=== PATIENT | female | born 1950 | race Caucasian/White ===

== ENCOUNTER 2019-02-28 13:34 | Inpatient (IN) | payer BC ==
[~2019-02-28] VITALS: Ht 167.6 cm; Wt 33.6 kg
--- NOTE | 2019-02-28 13:58 | NUR ---
BIB FAMILY TO ED BED 10. SENT BY PMD FOR DEPRESSION AND AND WEIGHT LOSS. AWAITING ERMD EVAL.
--- NOTE | 2019-02-28 14:00 | NUR ---
PROCESS DEVELOPMENT MANAGER AT BEDSIDE FOR BLOOD DRAW.
[2019-02-28 14:03] LABS: APPEARANCE,URINE Cloudy (CLEAR); BILIRUBIN,URINE SMALL (NEGATIVE); BLOOD, URINE Negative Ery/uL (NEGATIVE); COLOR,URINE Yellow (YELLOW); KETONES,URINE Trace (NEGATIVE); LEUKOCYTE ESTERASE ,URINE Negative (NEGATIVE); NITRITE, URINE Positive (NEGATIVE); PROTEIN,URINE 30 mg/dl (NEGATIVE); UGLUCOSE Negative (NEGATIVE)
[2019-02-28 14:06] LABS: BASOPHILS # (AUTO) 0.1 /CMM (0.0-0.2); EOSINOPHILS % (AUTO) 0.9 % (0.0-6.0); HEMATOCRIT 39 % (33-45); HEMOGLOBIN 12.9 g/dL (11.5-14.8); LYMPHOCYTES % (AUTO) 24.8 % (20.0-44.0); MEAN CORPUSCULAR HGB CONC 33 g/dl (31.0-36.0); MEAN CORPUSCULAR VOLUME 90 fL (82-100); MONOCYTES # (AUTO) 0.5 /CMM (0.1-1.30); MONOCYTES % (AUTO) 6.6 % (2.0-12.0); NEUTROPHILS # (AUTO) 5.3 /CMM (1.8-8.9); NEUTROPHILS % (AUTO) 66.7 % (43.0-81.0); PLATELET COUNT (AUTO) 341 /CMM (150-450); RED BLOOD CELL COUNT(AUTO) 4.38 MIL/uL (4.0-5.2)
[2019-02-28 14:09] LABS: BACTERIA,URINE Many /HPF (None Seen); RBC,URINE 0-2 /HPF (0-2)
[2019-02-28 14:10] LABS: SQUAMOUS EPITHELIAL CELL,UR Few /HPF (None Seen)
[2019-02-28 14:18] LABS: ALANINE AMINOTRANSFERASE 26 U/L (12-78); ALBUMIN 3.3 g/dL (3.4-5.0); ALCOHOL, BLOOD < 3 mg/dL (0-0); ALKALINE PHOSPHATASE 72 U/L (46-116); ASPARTATE AMINOTRANSFERASE 31 U/L (15-37); BILIRUBIN,DIRECT 0.1 mg/dL (0.0-0.2); BILIRUBIN,TOTAL 0.4 mg/dL (0.2-1.0); CALCIUM, SERUM 9.5 mg/dL (8.5-10.1); CHLORIDE 98 mmol/L (98-107); CREATININE 0.9 mg/dL (0.6-1.3); GLUCOSE 118 mg/dL (74-106); SODIUM SERUM 141 mmol/L (136-145); TOTAL PROTEIN, SERUM 6.5 g/dL (6.4-8.2); UREA NITROGEN, BLOOD 35 mg/dL (7-18)
[2019-02-28 14:20] LABS: ACETAMINOPHEN 0 ug/ml (10-30); CARBON DIOXIDE 40 mmol/L (21-32); SALICYLATE 1.5 mg/dL (2.8-20.0)
[2019-02-28 14:22] LABS: POTASSIUM 2.3 mmol/L (3.5-5.1)
--- NOTE | 2019-02-28 14:34 | NUR ---
DR YUSUF AT BEDSIDE FOR EVAL.
[2019-02-28] MEDS ORDERED: POTASSIUM CHLORIDE 20 MEQ TAB.PRT.SR PO ONE ×2 (15:16→15:30)
[2019-02-28] MEDS ORDERED: CEFTRIAXONE 1GM BAG (ER ONLY) 50 ML IV ONE (15:19)
[2019-02-28] MEDS ORDERED: POTASSIUM CHLORIDE 20 MEQ POWDER PACKET ONE (15:20)
[2019-02-28] MEDS ORDERED: IV NS 0.9% 1,000 ML BAG IV ONE (15:30)
[2019-02-28] MEDS ORDERED: CEFTRIAXONE 1 G in IV D5W 50 ML IV ONE (15:30)
[2019-02-28] MEDS ORDERED: POTASSIUM CL. PREMIX PERIPHER. 200 ML ONE (15:32)
[2019-02-28] MEDS ORDERED: HYDR25TA4 PO (15:58)
[2019-02-28] MEDS ORDERED: QUET50TA PO (15:58)
[2019-02-28] MEDS ORDERED: LAMO100T17 PO (15:58)
[2019-02-28] MEDS ORDERED: QUET300T2 PO (15:58)
[2019-02-28] MEDS ORDERED: VENL37.581 PO (15:58)
[2019-02-28] MEDS ORDERED: PANT40TA4 PO (15:58)
[2019-02-28] MEDS ORDERED: LIPA1CAP15 PO (15:58)
[2019-02-28] MEDS: POTASSIUM CL. PREMIX PERIPHER. 50 ML IV SCH ×2 (16:09→20:13)
--- NOTE | 2019-02-28 18:21 | NUR ---
REPORT GIVEN TO BRAD OJEDA. AWAITING TRANSFER TO FLOOR.
--- NOTE | 2019-02-28 18:55 | NUR ---
TELE/RN NOTES RECEIVED PATIENT FROM ER. PATIENT IS ALERT AND ORIENTED X4 VIA GURNEY.HISTORY OF PANCREATIC CANCER, DEPRESSION, GERIATRIC PSYCHE. SKIN AND INTACT. VITAL SIGN BP 127/74 RR 16 P- 73 T 97.8. POTASSIUM 2.3 3RD BAG OF POTASSIUM 10MEQ WILL ENDORSED TO MENTAL HEALTH COORDINATOR THE CONTINUE OF CARE.
--- NOTE | 2019-02-28 19:10 | NUR ---
TELE/RN ADMITTING NOTES: RECEIVED REPORT FROM HUSSAIN OJEDA FROM [facility]. PATIENT IS ALREADY ON THE UNIT, ROOM 307-2. RECEIVED PT IN BED RESTING COMFORTABLY. A/OX4, VERBALLY RESPONSIVE AND ABLE TO MAKE NEEDS KNOWN. NO SOB NOTED, NO S/S OF ACUTE DISTRESS, NO COMPLAINS OF PAIN OR DISCOMFORT AT THIS TIME. ORIENTED GIAN UNIT AND STAFF. BELONGINGS CHECKLIST DONE BY RENETTA SOSA. PATIENT SEEMS TO BE IN A CALM, FLAT MANNER YET COOPERATIVE WHEN ANSWERING QUESTIONS. SKIN ASSESSMENT DONE, INTACT AND NO S/S OF OPEN WOUNDS. PATIENT IS AMBULATORY BUT NEEDS ASSISTANCE DUE TO WEAKNESS. ON TELE MONITORING WITH READING OF SR HR OF 70S. VITAL SIGNS STABLE. IV ACCESS PRESENT ON THE LEFT FA #20G WITH POTASSIUM IV 10MEQ STILL RUNNING (2ND BAG). DAY SHIFT NURSE; RAIJ ENDORSED ME THE THIRD BAG THAT WILL BE HUNG AFTER THE SECOND BAG IS DONE. STILL AWAITING FOR ORDERS FROM DR. GUDINO. ALL NEEDS MET AND PROVIDED AT THIS TIME. SAFETY MEASURES IN PLACE, BED IN LOW, LOCKED POSITION WITH SR UP X2. CALL LIGHT WITHIN REACH AND WILL CONTINUE TO MONITOR PATIENT ACCORDINGLY.
[2019-02-28 20:00] VITALS: BP 116/76
[2019-02-28] MEDS ORDERED: MAG HYDROX/AL HYDROX/SIMETH 30 ML UDC PO PRN (20:30)
[2019-02-28] MEDS ORDERED: ONDANSETRON HCL/PF 4 MG/2 ML VIAL IVP PRN (20:30)
[2019-02-28] MEDS ORDERED: Z GUARD REMEDY 2 OZ OINT TP PRN (20:30)
[2019-02-28] MEDS ORDERED: MAGNESIUM HYDROXIDE 30 ML UDC PO PRN (20:30)
[2019-02-28] MEDS ORDERED: ACETAMINOPHEN 325 MG TABLET PO PRN (20:30)
--- NOTE | 2019-02-28 20:30 | NUR ---
TELE/RN NOTES: INFORMED LETICIA PATEL NP ABOUT PATIENT RECEIVING 40 MEQ KCL PO IN THE ER, AND PATIENT RECEIVING 2 BAGS OF POTASSIUM 10MEQ AND PT ARRIVING TO BUSTER UNIT WITH THE SECOND BAG STILL INFUSING. THIRD BAG STILL YET TO BE HUNG AFTER THE SECOND. STILL WAITING FOR LETICIA TO RESPOND FOR FURTHER ORDERS.
[2019-02-28] MEDS: IV 1/2NS 1000 ML 1,000 ML IV PRN (21:26)
[2019-03-01] VITALS: BP 136/82
[2019-03-01 04:00] VITALS: BP 133/78
--- NOTE | 2019-03-01 06:05 | NUR ---
TELE/RN CLOSING NOTES: PATIENT REMAINS A/OX4. IN BED RESTING COMFORTABLY. VERBALLY RESPONSIVE AND ABLE TO MAKE NEEDS KNOWN. NO SOB NOTED, NO S/S OF ACUTE DISTRESS, BREATHING EVEN AND UNLABORED. NO COMPLAINS OF PAIN OR DISCOMFORT AT THIS TIME. ON TELE MONITORING WITH READING OF SR WITH OCCASIONAL PVCS HR OF 70S. IV ACCESS PRESENT ON THE LEFT FA #20G WITH 1/2 NS RUNNING AT 100 MLS/HR. PATIENT WISHES TO BE DNR, WILL ENDORSE TO DAYSHIFT TO F/U WITH MD. ALL NEEDS MET AND PROVIDED AT THIS TIME. SAFETY MEASURES IN PLACE, BED IN LOW, LOCKED POSITION WITH SR UP X2. CALL LIGHT WITHIN REACH AND WILL ENDORSE TO DAYSHIFT NURSE FOR EVONNE.
[2019-03-01 07:14] LABS: BASOPHILS % (AUTO) 0.6 % (0.0-2.0); EOSINOPHILS % (AUTO) 0.7 % (0.0-6.0); HEMATOCRIT 35 % (33-45); HEMOGLOBIN 11.5 g/dL (11.5-14.8); LYMPHOCYTES # (AUTO) 1.4 /CMM (0.8-4.8); LYMPHOCYTES % (AUTO) 19.7 % (20.0-44.0); MEAN CORPUSCULAR HGB CONC 33 g/dl (31.0-36.0); MEAN CORPUSCULAR VOLUME 89 fL (82-100); MONOCYTES # (AUTO) 0.4 /CMM (0.1-1.30); MONOCYTES % (AUTO) 5.8 % (2.0-12.0); NEUTROPHILS # (AUTO) 5.3 /CMM (1.8-8.9); NEUTROPHILS % (AUTO) 73.2 % (43.0-81.0); PLATELET COUNT (AUTO) 265 /CMM (150-450); RED BLOOD CELL COUNT(AUTO) 3.87 MIL/uL (4.0-5.2); WHITE BLOOD COUNT (AUTO) 7.2 K/uL (4.3-11.0)
[2019-03-01 07:15] LABS: CALCIUM, SERUM 8.5 mg/dL (8.5-10.1); CREATININE 0.4 mg/dL (0.6-1.3); MAGNESIUM 1.7 mg/dL (1.8-2.4); PHOSPHORUS 2.6 mg/dL (2.5-4.9)
[2019-03-01 07:41] LABS: POTASSIUM 2.8 mmol/L (3.5-5.1); THYROID STIMULATING HORMONE 4.368 uIU/mL (0.358-3.74)
--- NOTE | 2019-03-01 07:47 | NUR ---
RN OPENING NOTES Received patient on room air, no sob noted, patient denies pain at this time. Patient a/o x4, remains on tele SR HR in the 70's./ L FA 20 gauge on 0.45 NS with 100 ml per hour. Most recent potassium is 2.8. Bed at the lowest setting, call light within reach, side rails up x2.
[2019-03-01 08:00] VITALS: BP 129/74
[2019-03-01] MEDS: LIPASE/PROTEASE/AMYLASE 1 EACH CAPSULE.DR PO SCH ×3 (08:11→17:15)
[2019-03-01] MEDS: PANTOPRAZOLE 40 MG TABLET.DR PO SCH (08:11)
[2019-03-01] MEDS: LamoTRIgine 100 MG TABLET PO SCH ×2 (08:12→17:15)
[2019-03-01] MEDS ORDERED: POTASSIUM CHLORIDE 20 MEQ TAB.PRT.SR PO SCH (09:00)
[2019-03-01] MEDS ORDERED: QUETIAPINE FUMARATE 25 MG TABLET PO SCH (09:00)
[2019-03-01] MEDS ORDERED: VENLAFAXINE XR 37.5 MG CAP.SR.24H PO SCH (09:00)
[2019-03-01] MEDS ORDERED: POTASSIUM CHLORIDE 20 MEQ POWDER PACKET PO SCH (09:09)
--- NOTE | 2019-03-01 09:20 | NUR ---
RN NOTES Called pharmacy to change KDUR from oral form to potassium powder pack. Pharmacy changed it to be given tomorrow. Called them to change it to today. Jennifer stated that "this is what happens when you change forms". Awaiting for changes to happen.
[2019-03-01] MEDS: POTASSIUM CHLORIDE 20 MEQ POWDER PACKET PO SCH (09:27)
[2019-03-01] MEDS: POTASSIUM CL. PREMIX PERIPHER. 50 ML IV SCH ×4 (09:27→12:06)
[2019-03-01] MEDS: Magnesium 1GM/D5W 100ML PREMIX 100 ML IV SCH ×2 (14:17→15:50)
[2019-03-01 16:00] VITALS: BP 117/70
[2019-03-01] MEDS: ENSURE CLEAR 237 ML LIQUID (MIX BERRY) PO SCH (17:15)
--- NOTE | 2019-03-01 17:58 | NUR ---
RN CLOSING NOTES Patient remains on room air, no sob noted, a/o x4, magnesium and potassium replaced. L fa 20 half NS @ 100 ml per hour. Bed at the lowest setting, call light within reach, side rails up x2. Will give report to NOC RN for EVONNE bedside.
--- NOTE | 2019-03-01 19:48 | NUR ---
MS RN OPENING NOTES PATIENT RESTING COMFORTABLY IN BED; AWAKE, A/O X4; BREATHING EVEN AND UNLABORED; NO S/S OF ACUTE RESPIRATORY DISTRESS NOTED; PATIENT DENIES PAIN AND REPORTS TO BE DOING WELL; SKIN IS INTACT; L FA #20 INTACT AND PATENT; RUNNING 1/2 NS @ 100ML/HR; FLUSHING WELL; NO S/S OF REDNESS OR INFILTRATION; BED LOCKED IN LOW POSITION; SAFETY PRECAUTIONS IN PLACE; BILATERAL UPPER SIDE RAILS UP; CALL LIGHT WITHIN EASY REACH; WILL CONTINUE TO MONITOR.
[2019-03-01 20:00] VITALS: BP 108/70
[2019-03-01] MEDS: QUETIAPINE FUMARATE 100 MG TABLET PO SCH ×2 (21:32→21:35)
[2019-03-02] MEDS: IV 1/2NS 1000 ML 1,000 ML IV PRN (01:51)
--- NOTE | 2019-03-02 06:40 | NUR ---
MS RN CLOSING NOTES PATIENT SLEEPING COMFORTABLY IN BED; PATIENT IS A/O X4; BREATHING EVEN AND UNLABORED; NO S/S OF ACUTE RESPIRATORY DISTRESS NOTED; L FA #20 INTACT AND PATENT; IV SITE RUNNING D5 1/2 NS @ 100ML/HR; NO S/S OF REDNESS OR INFILTRATION NOTED; FLUSHING WELL; SKIN INTACT; BED LOCKED IN LOW POSITION, SIDE RAILS UP X2; SAFETY PRECAUTIONS IN PLACE; CALL LIGHT WITHIN EASY REACH; WILL ENDORSE CONTINUITY OF CARE TO ONCOMING NURSE.
[2019-03-02 06:48] LABS: BASOPHILS % (AUTO) 0.6 % (0.0-2.0); EOSINOPHILS % (AUTO) 0.9 % (0.0-6.0); HEMATOCRIT 32 % (33-45); HEMOGLOBIN 10.7 g/dL (11.5-14.8); LYMPHOCYTES # (AUTO) 1.4 /CMM (0.8-4.8); LYMPHOCYTES % (AUTO) 19.6 % (20.0-44.0); MEAN CORPUSCULAR HGB CONC 33 g/dl (31.0-36.0); MEAN CORPUSCULAR VOLUME 89 fL (82-100); MONOCYTES # (AUTO) 0.4 /CMM (0.1-1.30); MONOCYTES % (AUTO) 5.2 % (2.0-12.0); NEUTROPHILS # (AUTO) 5.2 /CMM (1.8-8.9); NEUTROPHILS % (AUTO) 73.7 % (43.0-81.0); PLATELET COUNT (AUTO) 206 /CMM (150-450)
[2019-03-02 07:30] LABS: CALCIUM, SERUM 8.2 mg/dL (8.5-10.1); CREATININE 0.5 mg/dL (0.6-1.3); MAGNESIUM 2.1 mg/dL (1.8-2.4); PHOSPHORUS 2.4 mg/dL (2.5-4.9)
[2019-03-02 08:00] VITALS: BP 94/58
[2019-03-02] MEDS: ENSURE CLEAR 237 ML LIQUID (MIX BERRY) PO SCH (08:00)
[2019-03-02] MEDS: PANTOPRAZOLE 40 MG TABLET.DR PO SCH (08:23)
[2019-03-02] MEDS: LIPASE/PROTEASE/AMYLASE 1 EACH CAPSULE.DR PO SCH (08:24)
[2019-03-02] MEDS: POTASSIUM CHLORIDE 20 MEQ POWDER PACKET PO SCH (08:25)
[2019-03-02] MEDS: LamoTRIgine 100 MG TABLET PO SCH (08:26)
[2019-03-02] MEDS ORDERED: POTASSIUM CHLORIDE 20 MEQ TAB.PRT.SR PO ONE ×2 (09:00→09:30)
[2019-03-02] MEDS ORDERED: VENLAFAXINE XR 37.5 MG CAP.SR.24H PO SCH (09:00)
[2019-03-02] MEDS ORDERED: CEPHALEXIN MONOHYDRATE 500 MG CAPSULE PO SCH (09:30)
[2019-03-02] MEDS ORDERED: Lactose-Free Food PO (09:49)
[2019-03-02] MEDS ORDERED: MAGN400O6 PO ×2 (09:49→14:32)
[2019-03-02] MEDS ORDERED: POTA20PA3 PO (09:49)
[2019-03-02] MEDS ORDERED: VENL37.55 PO (09:49)
[2019-03-02] MEDS ORDERED: CEPH500C2 PO ×2 (09:49→14:32)
[2019-03-02] MEDS ORDERED: PANT40TA2 PO (09:49)
[2019-03-02] MEDS ORDERED: K PHOS NEUTRAL 250 MG TABLET PO ONE (12:30)
[2019-03-02] MEDS ORDERED: POTA20TA83 PO (14:32)
[2019-03-02] MEDS ORDERED: MAG30ORA PO (14:32)
[2019-03-02] MEDS ORDERED: LACT-58 PO (14:32)
[2019-03-02] MEDS ORDERED: ACET-868 PO (14:32)
== END 2019-03-02 14:00 | DRG 871 ==
LOC: ER 13:42 → TELE 18:24 → MED 03-01 10:07
PROVIDERS: ADMIT Registered Nurse; ATTEND Registered Nurse
DX: A41.9 Sepsis, unspecified organism (principal); R65.21 Severe sepsis with septic shock; N39.0 Urinary tract infection, site not specified; R64 Cachexia; F33.3 Major depressive disorder, recurrent, severe with psychotic symptoms; E86.0 Dehydration; E87.6 Hypokalemia; Z85.07 Personal history of malignant neoplasm of pancreas; Z90.411 Acquired partial absence of pancreas; Z92.21 Personal history of antineoplastic chemotherapy; Z86.73 Personal history of transient ischemic attack (TIA), and cerebral infarction without residual deficits; Z81.8 Family history of other mental and behavioral disorders; Z79.899 Other long term (current) drug therapy; I10 Essential (primary) hypertension; E86.1 Hypovolemia; E03.9 Hypothyroidism, unspecified
CPT/HCPCS: 36415; 80048-TC; 80061-TC; 80076-TC; 80305; 81000-TC; 83735-TC; 84100-TC; 84439-TC; 84443-TC; 85025-TC; 87081-TC; 87086-TC; 97116-TC; 97530-TC; G0378; G0480; J0696; J2405; J3475; J3480; J3490; J7030; J7060; J7070

== ENCOUNTER 2019-03-02 13:40 | Inpatient (IN) | payer BC, OTHER ==
[~2019-03-02] VITALS: Ht 167.6 cm; Wt 38.6 kg
[~2019-03-02 13:40] MED LIST: CEPH500C2 PO; HYDR25TA4 PO; LAMO100T17 PO; LIPA1CAP15 PO; Lactose-Free Food PO; MAGN400O6 PO; PANT40TA2 PO; PANT40TA4 PO; POTA20PA3 PO; QUET300T2 PO; QUET50TA PO; VENL37.55 PO; VENL37.581 PO
[2019-03-02] MEDS ORDERED: MAG30ORA PO (14:32)
[2019-03-02] MEDS ORDERED: POTA20TA83 PO (14:32)
[2019-03-02] MEDS ORDERED: ACET-868 PO (14:32)
[2019-03-02] MEDS ORDERED: MAGN400O6 PO (14:32)
[2019-03-02] MEDS ORDERED: LACT-58 PO (14:32)
[2019-03-02] MEDS ORDERED: CEPH500C2 PO (14:32)
[2019-03-02] MEDS ORDERED: ACETAMINOPHEN 325 MG TABLET PO PRN (15:00)
[2019-03-02] MEDS ORDERED: BLOOD SUGAR DIAGNOSTIC 1 EACH STRIP IN ONE (15:00)
[2019-03-02] MEDS ORDERED: LORAZEPAM 0.5 MG TABLET PO PRN (15:00)
[2019-03-02] MEDS ORDERED: MAG HYDROX/AL HYDROX/SIMETH 30 ML UDC PO PRN (15:00)
[2019-03-02] MEDS ORDERED: MAGNESIUM HYDROXIDE 30 ML UDC PO PRN (15:00)
[2019-03-02 16:00] VITALS: BP 100/67
--- NOTE | 2019-03-02 16:15 | NUR ---
DR. MONTES DE OCA MADE AWARE OF THE ADMISSION AND GAVE ORDERS.
[2019-03-02] MEDS: LamoTRIgine 100 MG TABLET PO SCH (16:17)
--- NOTE | 2019-03-02 16:59 | NUR ---
PATIENT IS A 69 YEAR OLD FEMALE BROUGHT IN TO GPS FROM THE MEDICAL FLOOR AT 1400. PATIENT IS ADMITTED ON A VOLUNTARY STATUS BY DR MONTES DE OCA. PATIENT HAS ALLEGEDLY NOT BEEN BATHING AND NOT EATING. SHE IS C/O DEPRESSION. UPON FACE TO FACE ASSESSMENT PATIENT IS NOTICEABLY UNDERWEIGHT, 85 POUNDS. SHE APPEARS DEPRESSED WITH FLAT AFFECT. PATIENT STATED THAT SHE HAS BEEN FEELING DEPRESSED FOR ABOUT 1 YEAR. PATIENT HAS BRUISE ON RIGHT HAND BUT OTHERWISE SKIN IS INTACT. VITAL SIGNS STABLE. ADMISSION PAPERWORK SIGNED. PATIENTS RIGHTS HANDBOOK AND GUIDE TO PRESCRIPTIONS GIVEN.WILL MONITOR PATIENT Q15 FOR SAFETY AND BEHAVIOR.
[2019-03-02] MEDS: ZOLPIDEM TARTRATE 5 MG TABLET PO PRN (21:01)
[2019-03-02] MEDS ORDERED: QUETIAPINE FUMARATE 100 MG TABLET PO SCH (22:00)
[2019-03-02 22:14] VITALS: BP 98/69
[2019-03-03 07:46] LABS: ALBUMIN 2.4 g/dL (3.4-5.0); BILIRUBIN,TOTAL 0.3 mg/dL (0.2-1.0); CALCIUM, SERUM 8.6 mg/dL (8.5-10.1); CREATININE 0.6 mg/dL (0.6-1.3); POTASSIUM 3.4 mmol/L (3.5-5.1); TOTAL PROTEIN, SERUM 4.9 g/dL (6.4-8.2)
[2019-03-03 07:49] LABS: CHOLESTEROL 186 mg/dL (<200); HDL CHOLESTEROL 63 mg/dL (40-60); LDL 103 mg/dL (0-99); TRIGLYCERIDES 115 mg/dL (30-150)
[2019-03-03 08:00] VITALS: BP 100/66
[2019-03-03] MEDS: VENLAFAXINE XR 75 MG CAP.SR.24H PO SCH (08:22)
[2019-03-03] MEDS: LamoTRIgine 100 MG TABLET PO SCH ×2 (08:22→22:05)
--- NOTE | 2019-03-03 11:15 | NUR ---
Family Contact: SW spoke to the pts ex , Ta ([phone]), and informed him that the pt is in the hospital and discussed the pts treatment plan. Pts ex stated that she can live alone at home but stated that the pt will benefit from a higher level of care.
[2019-03-03] MEDS ORDERED: POTASSIUM CHLORIDE 20 MEQ TAB.PRT.SR PO SCH (11:30)
--- NOTE | 2019-03-03 11:39 | NUR ---
Initial Discharge Plan: Pt currently resides at her home alone located at [address] [place] [address]; ([phone]). Per pt, she would like to return to her home. MELANIE will work with the pt and the MD regarding appropriate discharge planning. SW will form a safe and proper discharge plan.
--- NOTE | 2019-03-03 11:51 | NUR ---
UR Note: MELANIE faxed a clinical to [facility] with attn to Ever to the fax number: [phone] and to Abhi Bronson to the fax number: [phone].
[2019-03-03 16:00] VITALS: BP 120/76
[2019-03-03] MEDS: PROSOURCE / PROSTAT (PYXIS) 30 ML UDC PO SCH (17:00)
[2019-03-03] MEDS ORDERED: ENSURE CLEAR 237 ML LIQUID (MIX BERRY) PO SCH (17:00)
[2019-03-03 20:30] VITALS: BP 122/84
[2019-03-03] MEDS: QUETIAPINE FUMARATE 100 MG TABLET PO SCH (22:05)
[2019-03-03] MEDS: ZOLPIDEM TARTRATE 5 MG TABLET PO PRN (22:35)
[2019-03-04 08:00] VITALS: BP 99/63
[2019-03-04] MEDS: VENLAFAXINE XR 75 MG CAP.SR.24H PO SCH (08:34)
[2019-03-04] MEDS: PROSOURCE / PROSTAT (PYXIS) 30 ML UDC PO SCH ×2 (08:50→17:12)
[2019-03-04 14:58] LABS: CALCIUM, SERUM 8.6 mg/dL (8.5-10.1); CREATININE 0.6 mg/dL (0.6-1.3); POTASSIUM 3.1 mmol/L (3.5-5.1)
[2019-03-04 16:00] VITALS: BP 96/78
[2019-03-04] MEDS ORDERED: POTASSIUM CHLORIDE 10 MEQ TABLET.SA PO ONE ×2 (16:30→21:00)
[2019-03-04] MEDS: ENSURE ENLIVE CHOC 237 ML CAN PO SCH (17:12)
[2019-03-04 20:55] VITALS: BP 104/70
[2019-03-04] MEDS: LamoTRIgine 100 MG TABLET PO SCH (21:48)
[2019-03-04] MEDS: QUETIAPINE FUMARATE 100 MG TABLET PO SCH (21:49)
[2019-03-04] MEDS: ZOLPIDEM TARTRATE 5 MG TABLET PO PRN (21:54)
--- NOTE | 2019-03-04 21:54 | NUR ---
RN NOTE: PT REQUESTING AMBIEN FOR INSOMNIA. PT MEDICATED WITH AMBIEN PRN
[2019-03-05 07:41] LABS: CALCIUM, SERUM 8.7 mg/dL (8.5-10.1); CREATININE 0.7 mg/dL (0.6-1.3); POTASSIUM 3.8 mmol/L (3.5-5.1)
[2019-03-05 08:00] VITALS: BP 102/64
[2019-03-05] MEDS: PROSOURCE / PROSTAT (PYXIS) 30 ML UDC PO SCH ×2 (08:08→16:42)
[2019-03-05] MEDS: ENSURE ENLIVE CHOC 237 ML CAN PO SCH ×2 (08:08→16:42)
[2019-03-05] MEDS: VENLAFAXINE XR 75 MG CAP.SR.24H PO SCH (08:08)
[2019-03-05 16:00] VITALS: BP 116/71
[2019-03-05 20:51] VITALS: BP 122/83
[2019-03-05] MEDS: QUETIAPINE FUMARATE 100 MG TABLET PO SCH (21:06)
[2019-03-05] MEDS: LamoTRIgine 100 MG TABLET PO SCH (21:06)
--- NOTE | 2019-03-05 21:16 | NUR ---
RN NOTES: PT. REFUSED WEEKLY SKIN REASSESSMENT AND PHOTO TO BE TAKEN,ENCOURAGED X3 STILL REFUSED, PER PT. STATED MY SKIN IS FINE, WILL CONTINUITY WITH CARE.
[2019-03-06 08:00] VITALS: BP 97/58
[2019-03-06] MEDS: VENLAFAXINE XR 75 MG CAP.SR.24H PO SCH (08:07)
[2019-03-06] MEDS: ENSURE ENLIVE CHOC 237 ML CAN PO SCH ×2 (08:07→17:58)
[2019-03-06] MEDS: PROSOURCE / PROSTAT (PYXIS) 30 ML UDC PO SCH ×2 (08:08→17:59)
[2019-03-06] MEDS: VENLAFAXINE XR 37.5 MG CAP.SR.24H PO SCH (09:18)
--- NOTE | 2019-03-06 11:06 | NUR ---
UR Note: MELANIE faxed a clinical to [facility] with attn to Ever to the fax number: [phone] and to Abhi Bronson to the fax number: [phone].
--- NOTE | 2019-03-06 11:14 | NUR ---
Family Contact: SW called the pts ex , Ta ([phone]), and left a voicemail stating that the SW would like to discuss the pts discharge plan.
[2019-03-06 16:00] VITALS: BP 90/63
--- NOTE | 2019-03-06 16:01 | NUR ---
PATIENT REFUSES ASSESSMENT OF HER SKIN INCLUDING HER SACRAL REGION. I INFORMED THE PATIENT THAT SHE HAS BEEN IN HER BED SINCE YESTERDAY AND ONLY GETS UP TO USE THE RESTROOM. PATIENT STATES SHE STILL DOESNT WANT TO BE ASSESSED. PROPPING A PILLOW UNDER SACRUM AND ALTERNATING SIDES TO RELEASE PRESSURE.
[2019-03-06 20:44] VITALS: BP 133/84
[2019-03-06] MEDS: QUETIAPINE FUMARATE 100 MG TABLET PO SCH (21:21)
[2019-03-07 08:00] VITALS: BP 100/67
[2019-03-07] MEDS: ENSURE ENLIVE CHOC 237 ML CAN PO SCH ×2 (08:59→17:37)
[2019-03-07] MEDS: VENLAFAXINE XR 37.5 MG CAP.SR.24H PO SCH (09:00)
[2019-03-07] MEDS: PROSOURCE / PROSTAT (PYXIS) 30 ML UDC PO SCH ×2 (09:01→17:35)
--- NOTE | 2019-03-07 09:59 | NUR ---
Individual Intervention with the Pt: Pt stated that she is open to placement options such as Assisted Living in her area. SW stated that she would refer her to a placement agency that can assist her with her needs.
--- NOTE | 2019-03-07 10:28 | NUR ---
Placement Referral: MELANIE faxed a placement referral to [facility] with attn to Clarence to the fax number: [phone].
[2019-03-07 16:00] VITALS: BP 123/81
[2019-03-07 20:19] VITALS: BP 153/93
[2019-03-07] MEDS: QUETIAPINE FUMARATE 100 MG TABLET PO SCH (21:01)
[2019-03-08 08:00] VITALS: BP 100/59
[2019-03-08] MEDS: ENSURE ENLIVE CHOC 237 ML CAN PO SCH ×2 (08:00→17:00)
[2019-03-08] MEDS: PROSOURCE / PROSTAT (PYXIS) 30 ML UDC PO SCH ×2 (08:32→17:00)
[2019-03-08] MEDS: VENLAFAXINE XR 37.5 MG CAP.SR.24H PO SCH (08:32)
[2019-03-08 16:00] VITALS: BP 120/71
[2019-03-08 20:17] VITALS: BP 116/86
[2019-03-08] MEDS: QUETIAPINE FUMARATE 100 MG TABLET PO SCH (22:21)
[2019-03-09 08:00] VITALS: BP 111/70
[2019-03-09] MEDS: ENSURE ENLIVE CHOC 237 ML CAN PO SCH ×2 (08:32→17:56)
[2019-03-09] MEDS: PROSOURCE / PROSTAT (PYXIS) 30 ML UDC PO SCH ×2 (08:32→17:57)
[2019-03-09] MEDS: VENLAFAXINE XR 37.5 MG CAP.SR.24H PO SCH (08:32)
--- NOTE | 2019-03-09 11:23 | NUR ---
CONTACTED DR WHITE REGARDING PATIENT'S N/V EPISODES. AWAITING CALL BACK WITH ORDERS.
[2019-03-09] MEDS ORDERED: ONDANSETRON 4 MG TAB.RAPDIS SL PRN (12:00)
--- NOTE | 2019-03-09 12:19 | NUR ---
Family Contact: MELANIE called the pts ex , Ta ([phone]), and informed him that the pt is going to be transferred to the Medical Floor of the hospital. SW urged him to call the placement agency as they have three options that they would like to provide him with and he stated that he does not believe that is necessary at this time as the pt is being discharged to the medical floor. MELANIE explained that does not in the way of discharge planning as finding placement can take some time. He stated that he will call.
--- NOTE | 2019-03-09 12:34 | NUR ---
UR Note: MELANIE faxed a clinical to [facility] with attn to Ever to the fax number: [phone] and to Abhi Bronson to the fax number: [phone].
--- NOTE | 2019-03-09 13:34 | NUR ---
SHAMAR JALLOH GIVEN FOR N/V. PATIENT HAD ABOUT 500CC OF EMESIS SINCE LAST NIGHT. MD IS AWARE. PSYCHIATRIST IS AWARE. PATIENT IS GOING TO BE TRANSFERRED TO MEDICAL FLOOR FOR FURTHER EVALUATION. Addendum: 03/09/19 at 1853 by SHALOM MATIAS RN PATIENT STATED HER NAUSEA HAS GOTTEN BETTER BUT IS STILL HAVING N/V EPISODES.
--- NOTE | 2019-03-09 13:39 | NUR ---
UR Note: MELANIE called Tere ([phone]) from [employer] and left a message on her voicemail that the SW has been faxing clinicals for the pt and stated the fax number. MELANIE stated that she will attempt to send the fax once again from a different fax machine.
[2019-03-09 16:00] VITALS: BP 101/69
--- NOTE | 2019-03-09 19:04 | NUR ---
REPORT GIVEN TO RUSTY COSTA. PATIENT TO BE TRANSFERRED TO [facility] AROUND . INFORMED ONCOMING NURSE.
[2019-03-09 20:33] VITALS: BP 135/85
--- NOTE | 2019-03-09 21:15 | NUR ---
GPS DISCHARGE NOTES: PATIENT IS A 69 Y/O FEMALE DISCHARGED TO [facility]. PATIENT IS IN STABLE CONDITION. VITAL SIGNS WITHIN NORMAL LEVEL. NO ACUTE DISTRESS NOTED. BREATHING EVEN AND UNLABORED. NO [id number] AT THIS TIME. COMPLAINT WITH MEDICATION MANAGEMENT. COOPERATIVE WITH THE PLAN OF CARE. PSYCHIATRIC TREATMENT PLANS MET. PT DENIES S/I AND H/I AT THE TIME OF DISCHARGE. EDUCATED PT OF AFTERCARE WITH COPT PROVIDED. RETURNED PERSONAL BELONGINGS TO PATIENT. DISCHARGED PAPERWORK SIGNED. GAVE REPORT TO [facility] NURSE JOHN. CONTINUE TO MONITOR.
== END 2019-03-09 21:16 | disposition short-term general hospital (02) | DRG 885 ==
LOC: GPS 13:40
PROVIDERS: ADMIT Psychiatry & Neurology Psychiatry; ATTEND Family Medicine
DX: F33.3 Major depressive disorder, recurrent, severe with psychotic symptoms (principal); E43 Unspecified severe protein-calorie malnutrition; R64 Cachexia; Z68.1 Body mass index [BMI] 19.9 or less, adult; E87.6 Hypokalemia; I10 Essential (primary) hypertension; Z79.899 Other long term (current) drug therapy; Z85.07 Personal history of malignant neoplasm of pancreas; Z92.21 Personal history of antineoplastic chemotherapy; Z92.3 Personal history of irradiation; Z90.411 Acquired partial absence of pancreas; E88.09 Other disorders of plasma-protein metabolism, not elsewhere classified; F39 Unspecified mood [affective] disorder
CPT/HCPCS: 36415; 80048-TC; 80053-TC; 80061-TC; 82962-TC; 84443-TC; 87081-TC; 97116-TC; 97530-TC; Q0162

== ENCOUNTER 2019-03-09 21:21 | Inpatient (IN) | payer BC, OTHER ==
[~2019-03-09] VITALS: Ht 167.6 cm; Wt 34.9 kg
[2019-03-09 21:10] VITALS: BP 128/85
[~2019-03-09 21:21] MED LIST changes: +ACET-868 PO; -HYDR25TA4 PO; +LACT-58 PO; -Lactose-Free Food PO; +MAG30ORA PO; -PANT40TA2 PO; -POTA20PA3 PO; +POTA20TA83 PO; -VENL37.55 PO
[2019-03-09 21:52] VITALS: BP 128/85
--- NOTE | 2019-03-09 21:52 | NUR ---
MS RN NOTES PATIENT ARRIVED ON UNIT FROM GPS AT 2152. PATIENT IN BED, ALERT AND ORIENTED X 4. BREATHING EVEN AND UNLABORED ON ROOM AIR. SHOWS SIGNS OF ACUTE RESPIRATORY DISTRESS, NO ACUTE PAIN. IV ON LAC #22G SL. SHOWS NO SIGNS OF REDNESS. NO INFILTRATION. SAFETY PRECAUTIONS IN PLACE. BED IN LOWEST POSITION, LOCKED, AND CALL LIGHT KEPT WITHIN REACH. WILL CONTINUE TO MONITOR.
[2019-03-09] MEDS ORDERED: Z GUARD REMEDY 2 OZ OINT TP PRN (22:00)
[2019-03-09] MEDS ORDERED: QUETIAPINE FUMARATE 100 MG TABLET PO SCH (22:00)
[2019-03-09] MEDS ORDERED: Potassium Chloride 20 MEQ in IV D5/ 0.9% NACL 1,000 ML IV PRN (22:00)
[2019-03-09] MEDS ORDERED: ACETAMINOPHEN 325 MG TABLET PO PRN (22:00)
[2019-03-09] MEDS ORDERED: LORAZEPAM INJ 2 MG/ML VIAL IV PRN (23:00)
[2019-03-09] MEDS ORDERED: BENZOCAINE MM PRN (23:45)
[2019-03-10] MEDS ORDERED: IV PREMIX D5 1/2NS + KCL 1,000 ML IV ONE (00:59)
[2019-03-10] MEDS: Potassium Chloride 20 MEQ in IV D5/0.45 NACL 1,000 ML IV PRN ×2 (01:11→18:51)
[2019-03-10] MEDS: MORPHINE SULFATE INJ 2 MG/ML DISP.SYRIN IV PRN ×5 (01:24→16:25)
--- NOTE | 2019-03-10 03:35 | NUR ---
MS RN NOTES PATIENT COMPLAINING OF PAIN /. ON THE NOSE AND THROAT. GIVEN MORPHINE PRN AT 0124. ANOTHER DOSE OF MORPHINE GIVEN AT 0335, PATIENT COMPLAINED OF PAIN AT THE NOSE AND THROAT. WILL CONTINUE TO MONITOR.
--- NOTE | 2019-03-10 06:01 | NUR ---
MS RN NOTES PATIENT COMPLAINING OF PAIN 08/24. GIVEN MORPHINE AT 0601. WILL CONTINUE TO MONITOR.
--- NOTE | 2019-03-10 06:36 | NUR ---
MS RN NOTES PATIENT IN BED, ASLEEP, ALERT AND ORIENTED X 4. BREATHING EVEN AND UNLABORED ON ROOM AIR. SHOWS SIGNS OF ACUTE RESPIRATORY DISTRESS, NO ACUTE PAIN. IV ON LAC #22G RUNNING KCL D5 1/2 NS AT 100ML/HR. SHOWS NO SIGNS OF REDNESS. NO INFILTRATION. NG TUBE PLACEMENT 03/[address] CHAUHAN, XRAY CONFIRMS PLACEMENT AT STOMACH. ALL DUE MEDICATIONS GIVEN. SAFETY PRECAUTIONS IN PLACE. BED IN LOWEST POSITION, LOCKED, AND CALL LIGHT KEPT WITHIN REACH. WILL ENDORSE TO ONCOMING NURSE.
[2019-03-10 07:23] LABS: BASOPHILS % (AUTO) 0.3 % (0.0-2.0); EOSINOPHILS % (AUTO) 0.2 % (0.0-6.0); HEMATOCRIT 32 % (33-45); HEMOGLOBIN 10.8 g/dL (11.5-14.8); LYMPHOCYTES % (AUTO) 10.7 % (20.0-44.0); MEAN CORPUSCULAR HGB CONC 33 g/dl (31.0-36.0); MEAN CORPUSCULAR VOLUME 90 fL (82-100); MONOCYTES # (AUTO) 0.6 /CMM (0.1-1.30); MONOCYTES % (AUTO) 6.4 % (2.0-12.0); NEUTROPHILS # (AUTO) 7.4 /CMM (1.8-8.9); NEUTROPHILS % (AUTO) 82.4 % (43.0-81.0); PLATELET COUNT (AUTO) 271 /CMM (150-450); RED BLOOD CELL COUNT(AUTO) 3.59 MIL/uL (4.0-5.2)
[2019-03-10 07:29] LABS: ALBUMIN 2.6 g/dL (3.4-5.0); BILIRUBIN,TOTAL 0.4 mg/dL (0.2-1.0); CALCIUM, SERUM 9.1 mg/dL (8.5-10.1); CREATININE 0.7 mg/dL (0.6-1.3); PHOSPHORUS 3.1 mg/dL (2.5-4.9); POTASSIUM 3.6 mmol/L (3.5-5.1); TOTAL PROTEIN, SERUM 5.8 g/dL (6.4-8.2)
[2019-03-10] MEDS: PANTOPRAZOLE 40 MG TABLET.DR PO SCH (07:30)
[2019-03-10 07:36] LABS: THYROID STIMULATING HORMONE 1.55 uIU/mL (0.358-3.74)
[2019-03-10 08:00] VITALS: BP 129/64
[2019-03-10] MEDS: ENSURE ENLIVE CHOC 237 ML CAN PO SCH ×3 (08:00→17:00)
[2019-03-10] MEDS: LIPASE/PROTEASE/AMYLASE 1 EACH CAPSULE.DR PO SCH ×3 (08:00→17:13)
--- NOTE | 2019-03-10 08:00 | NUR ---
MAT WORKER NOTES PATIENT IN BED SLEEPING NO SOB OR ACUTE DISTRESS NOTED. PATIENT ALERT, ORIENTED X3 APPEARS TO HAVE A FLAT EFFECT. PATIENT WITH NG TUBE ON INTERMITTENT SUCTIONING. PATIENT PLACED ON NPO DUE TO CT OF ABD. PERIPHERAL IV INTACT PATENT. BED IN LOW LOCKED POSITION. CALL LIGHT WITHIN REACH. WILL CONTINUE TO MONITOR.
[2019-03-10] MEDS ORDERED: QUETIAPINE FUMARATE 25 MG TABLET PO SCH (09:00)
[2019-03-10] MEDS ORDERED: LamoTRIgine 100 MG TABLET PO SCH (09:00)
[2019-03-10] MEDS: CEPHALEXIN MONOHYDRATE 500 MG CAPSULE PO SCH ×2 (09:00→21:00)
[2019-03-10] MEDS ORDERED: VENLAFAXINE XR 75 MG CAP.SR.24H PO SCH (09:00)
[2019-03-10] MEDS: POTASSIUM CHLORIDE 20 MEQ TAB.PRT.SR PO SCH (09:00)
[2019-03-10] MEDS ORDERED: IOHEXOL-300 100 ML VIAL IV ONE (10:28)
[2019-03-10] MEDS ORDERED: IV NS 0.9% 250 ML IV ONE ×2 (10:28→12:56)
--- NOTE | 2019-03-10 11:35 | NUR ---
ms rn notes patient transferred to radiology for ct and xray.
[2019-03-10] MEDS ORDERED: DIATR MEGLU/DIATRIZOATE SODIUM 120 ML BOTTLE (GASTROGRAPHIN) ONE (12:55)
[2019-03-10 16:00] VITALS: BP 112/88
[2019-03-10] MEDS ORDERED: PHENOL/SODIUM PHENOLATE 1 BOTTLE MM PRN (16:30)
--- NOTE | 2019-03-10 19:26 | NUR ---
CHANGE OF SHIFT REPORT Patient in bed, awake. Feels some nausea, abdominal discomfort. Remains NPO NGT to suction. IVF infusing. Fall/skin precaution maintained.
--- NOTE | 2019-03-10 19:29 | NUR ---
MS RN NOTES PATIENT IN BED RESTING NO SOB OR ACUTE DISTRESS NOTED. NG TUBE INTACT PATIENT. PERIPHERAL IV INTACT PATENT. ALL DUE MEDICATIONS ADMINISTERED. ALL NEEDS MET. ENDORSED EVONNE TO PM SHIFT.
[2019-03-10 20:00] VITALS: BP 117/85
[2019-03-10 20:10] VITALS: BP 117/85
[2019-03-10] MEDS: ONDANSETRON HCL/PF 4 MG/2 ML VIAL IVP PRN (21:10)
[2019-03-10] MEDS: QUETIAPINE FUMARATE 100 MG TABLET PO SCH (22:00)
[2019-03-11] MEDS: MORPHINE SULFATE INJ 2 MG/ML DISP.SYRIN IV PRN ×2 (00:16→10:18)
--- NOTE | 2019-03-11 06:20 | NUR ---
END OF SHIFT REPORT Patient in bed, A/O x3. Stable Oxygen sat on RA. Episode of emesis x1, some nausea resolved with PRN Zofran. Remains NPO, NGT to medium intermittent suction with minimal output. IVF infusing. Abdominal pain managed with PRN Morphine. Fall precaution maintained. Will endorse to Oncoming RN.
[2019-03-11 06:44] LABS: BASOPHILS % (AUTO) 0.3 % (0.0-2.0); EOSINOPHILS % (AUTO) 0.5 % (0.0-6.0); HEMATOCRIT 34 % (33-45); HEMOGLOBIN 11.4 g/dL (11.5-14.8); LYMPHOCYTES % (AUTO) 11.7 % (20.0-44.0); MEAN CORPUSCULAR HGB CONC 33 g/dl (31.0-36.0); MEAN CORPUSCULAR VOLUME 91 fL (82-100); MONOCYTES # (AUTO) 0.7 /CMM (0.1-1.30); NEUTROPHILS # (AUTO) 6.5 /CMM (1.8-8.9); NEUTROPHILS % (AUTO) 79.5 % (43.0-81.0); PLATELET COUNT (AUTO) 265 /CMM (150-450); RED BLOOD CELL COUNT(AUTO) 3.78 MIL/uL (4.0-5.2); WHITE BLOOD COUNT (AUTO) 8.2 K/uL (4.3-11.0)
[2019-03-11] MEDS: Potassium Chloride 20 MEQ in IV D5/0.45 NACL 1,000 ML IV PRN ×2 (06:48→20:20)
[2019-03-11 06:51] LABS: CALCIUM, SERUM 8.9 mg/dL (8.5-10.1); CREATININE 0.5 mg/dL (0.6-1.3); MAGNESIUM 1.9 mg/dL (1.8-2.4); PHOSPHORUS 2.6 mg/dL (2.5-4.9); POTASSIUM 3.7 mmol/L (3.5-5.1)
[2019-03-11] MEDS: PANTOPRAZOLE 40 MG TABLET.DR PO SCH (07:30)
[2019-03-11 08:00] VITALS: BP 137/76
[2019-03-11] MEDS: ENSURE ENLIVE CHOC 237 ML CAN PO SCH ×3 (08:00→17:00)
[2019-03-11] MEDS: LIPASE/PROTEASE/AMYLASE 1 EACH CAPSULE.DR PO SCH ×3 (08:00→18:00)
--- NOTE | 2019-03-11 12:00 | NUR ---
Per dr. Stahl : d/c NG-tube and start on soft diet as tolerated
--- NOTE | 2019-03-11 12:00 | NUR ---
Patient cannot tolerate food , complain of Nausea. Will administrate PRN Zofran
[2019-03-11] MEDS: POTASSIUM CHLORIDE 20 MEQ TAB.PRT.SR PO SCH (12:52)
[2019-03-11] MEDS: CEPHALEXIN MONOHYDRATE 500 MG CAPSULE PO SCH ×2 (12:52→21:34)
--- NOTE | 2019-03-11 14:20 | NUR ---
Patient able to tolerate small amount of soup and apple juice.
[2019-03-11] MEDS: ONDANSETRON HCL/PF 4 MG/2 ML VIAL IVP PRN ×2 (14:26→23:35)
[2019-03-11 16:00] VITALS: BP 116/60
--- NOTE | 2019-03-11 16:00 | NUR ---
Encourage the patient to eat small amount of pudding. Tolerated well at this time. No N/V noted
--- NOTE | 2019-03-11 19:09 | NUR ---
Patient resting in bed, stable on room air. No distress noted, no N/V , no complain of pain. Patient needs to be encourage for increase PO intake. All needs attended. IV fluid running as ordered. Safety precautions in place, Call light within reach. Will endorse to next shift.
--- NOTE | 2019-03-11 19:12 | NUR ---
CHANGE OF SHIFT REPORT Patient in bed, awake. Appears comfortable, denies pain. NGT was d/c'd today per report. Poor appetite, IVF maintained. Encouraged increase PO intake, verbalized understanding. Fall/skin precaution maintained.
[2019-03-11 20:00] VITALS: BP 148/81
[2019-03-11 20:30] VITALS: BP 143/81
[2019-03-11] MEDS: QUETIAPINE FUMARATE 100 MG TABLET PO SCH (21:35)
[2019-03-12] MEDS: MORPHINE SULFATE INJ 2 MG/ML DISP.SYRIN IV PRN ×2 (02:14→06:50)
--- NOTE | 2019-03-12 06:06 | NUR ---
END OF SHIFT REPORT Patient in bed, A/O x3. Stable Oxygen sat on RA. Soft diet, poor appetite. Encourage increase PO intake. Episode of emesis x1 with some nausea resolved with PRN Zofran. IVF infusing. Back pain controlled with PRN Morphine. Fall precaution maintained. Will endorse to Oncoming RN
[2019-03-12 06:34] LABS: BASOPHILS % (AUTO) 0.4 % (0.0-2.0); EOSINOPHILS % (AUTO) 0.2 % (0.0-6.0); HEMATOCRIT 32 % (33-45); HEMOGLOBIN 10.6 g/dL (11.5-14.8); LYMPHOCYTES # (AUTO) 0.9 /CMM (0.8-4.8); MEAN CORPUSCULAR HGB CONC 33 g/dl (31.0-36.0); MEAN CORPUSCULAR VOLUME 91 fL (82-100); MONOCYTES # (AUTO) 0.3 /CMM (0.1-1.30); MONOCYTES % (AUTO) 4.4 % (2.0-12.0); NEUTROPHILS # (AUTO) 6.3 /CMM (1.8-8.9); PLATELET COUNT (AUTO) 242 /CMM (150-450); RED BLOOD CELL COUNT(AUTO) 3.51 MIL/uL (4.0-5.2); WHITE BLOOD COUNT (AUTO) 7.6 K/uL (4.3-11.0)
[2019-03-12] MEDS: Potassium Chloride 20 MEQ in IV D5/0.45 NACL 1,000 ML IV PRN (06:36)
[2019-03-12] MEDS: ONDANSETRON HCL/PF 4 MG/2 ML VIAL IVP PRN ×2 (06:49→12:01)
[2019-03-12 06:50] LABS: CALCIUM, SERUM 8.3 mg/dL (8.5-10.1); CREATININE 0.5 mg/dL (0.6-1.3); MAGNESIUM 1.7 mg/dL (1.8-2.4); PHOSPHORUS 2.2 mg/dL (2.5-4.9); POTASSIUM 3.7 mmol/L (3.5-5.1)
[2019-03-12 08:00] VITALS: BP 142/85
[2019-03-12] MEDS: LIPASE/PROTEASE/AMYLASE 1 EACH CAPSULE.DR PO SCH ×3 (08:26→17:02)
[2019-03-12] MEDS: POTASSIUM CHLORIDE 20 MEQ TAB.PRT.SR PO SCH (08:26)
[2019-03-12] MEDS: CEPHALEXIN MONOHYDRATE 500 MG CAPSULE PO SCH ×2 (08:26→21:00)
[2019-03-12] MEDS: PANTOPRAZOLE 40 MG TABLET.DR PO SCH (08:26)
[2019-03-12] MEDS: ENSURE ENLIVE CHOC 237 ML CAN PO SCH ×3 (08:27→17:00)
[2019-03-12] MEDS: Magnesium 1GM/D5W 100ML PREMIX 100 ML IV SCH ×2 (10:44→11:40)
[2019-03-12] MEDS: METOCLOPRAMIDE HCL 10 MG/2 ML VIAL IV SCH ×2 (15:08→21:28)
[2019-03-12] MEDS ORDERED: K PHOS NEUTRAL 250 MG TABLET PO ONE (15:30)
[2019-03-12 16:00] VITALS: BP 162/97
[2019-03-12 19:30] VITALS: BP 158/95
--- NOTE | 2019-03-12 19:43 | NUR ---
MS RN NOTES PATIENT IN BED, AWAKE, ALERT AND ORIENTED X 4. BREATHING EVEN AND UNLABORED ON ROOM AIR. SHOWS NO SIGNS OF ACUTE RESPIRATORY DISTRESS, NO ACUTE PAIN. IV ON LAC #22G RUNNING D51/2NS + KCL 20MEQ AT 100ML/HR. CLEAN DRY AND INTACT. SHOWS NO SIGNS OF INFILTRATION, NO REDNESS. SAFETY PRECAUTIONS IN PLACE. BED IN LOWEST POSITION, LOCKED, AND CALL LIGHT KEPT WITHIN REACH. WILL CONTINUE TO MONITOR.
[2019-03-12 20:00] VITALS: BP 158/95
[2019-03-12] MEDS: QUETIAPINE FUMARATE 100 MG TABLET PO SCH (22:00)
[2019-03-13] MEDS: METOCLOPRAMIDE HCL 10 MG/2 ML VIAL IV SCH ×4 (02:39→21:08)
[2019-03-13] MEDS: MORPHINE SULFATE INJ 2 MG/ML DISP.SYRIN IV PRN (03:51)
--- NOTE | 2019-03-13 06:33 | NUR ---
MS RN NOTES PATIENT IN BED, INTERMITTENT SLEEP, ALERT AND ORIENTED X 4. BREATHING EVEN AND UNLABORED ON ROOM AIR. SHOWS NO SIGNS OF ACUTE RESPIRATORY DISTRESS, NO ACUTE PAIN. IV ON LAC #22G RUNNING D51/2NS + KCL 20MEQ AT 100ML/HR. CLEAN DRY AND INTACT. SHOWS NO SIGNS OF INFILTRATION, NO REDNESS. SAFETY PRECAUTIONS IN PLACE. ALL DUE MEDICATIONS GIVEN. BED IN LOWEST POSITION, LOCKED, AND CALL LIGHT KEPT WITHIN REACH. WILL ENDORSE TO ONCOMING NURSE.
[2019-03-13 06:57] LABS: MAGNESIUM 2.1 mg/dL (1.8-2.4); PHOSPHORUS 2.8 mg/dL (2.5-4.9)
--- NOTE | 2019-03-13 07:40 | NUR ---
MS RN OPENING NOTES RECEIVED PT IN BED, AWAKE, A/O X4. PT TOLERATING RA, WITH NO ACUTE RESPIRATORY DISTRESS NOTED. PT DENIES ANY PAIN OR ANY DISCOMFORT AT THIS TIME. ALSO, PT DENIES ANY CONCERNS OR QUESTIONS WELL. IVF D5 1/2 NS WITH KCL AT 100ML/HR TO LAC G22, REFUSED BY PT TO BE INFUSED AT THIS TIME AND PER DRIVER EXAMINER PT FEELS PAIN EVEN IV IS INTACT WITH NO INFILTRATION NOTED. KEPT PT COMFORTABLE IN BED. CALL LIGHT KEPT WITHIN REACH. PT'S BED KEPT IN LOWEST, LOCKED POSITION WITH SRX3. WILL CONTINUE PLAN OF CARE.
[2019-03-13 08:00] VITALS: BP 160/100
[2019-03-13] MEDS: ENSURE ENLIVE CHOC 237 ML CAN PO SCH ×3 (08:00→17:00)
[2019-03-13] MEDS: LIPASE/PROTEASE/AMYLASE 1 EACH CAPSULE.DR PO SCH ×3 (08:00→17:49)
[2019-03-13 08:06] LABS: CARBOHYDRATE AG 19-9 <2 U/mL (0-35)
[2019-03-13] MEDS: PANTOPRAZOLE 40 MG TABLET.DR PO SCH (08:13)
[2019-03-13] MEDS: POTASSIUM CHLORIDE 20 MEQ TAB.PRT.SR PO SCH (08:25)
[2019-03-13] MEDS: CEPHALEXIN MONOHYDRATE 500 MG CAPSULE PO SCH ×2 (08:25→21:08)
--- NOTE | 2019-03-13 08:25 | NUR ---
MS RN NOTES PT REFUSED MOST OF MORNING MEDICINES STATING SHE'S UNABLE TO TAKE IT AND SHE'S JUST SPITTING EVERYTHING OUT. PT ABLE TO HAVE 3 SPOON OF EGGS FOR BREAKFAST, NO FOOD CAME OUT. JUST LIQUID. WILL CONTINUE TO MONITOR PT.
[2019-03-13] MEDS ORDERED: Magnesium 1GM/D5W 100ML PREMIX 100 ML IV SCH (09:30)
[2019-03-13 09:52] LABS: CREATININE 0.6 mg/dL (0.6-1.3); POTASSIUM 3.6 mmol/L (3.5-5.1)
[2019-03-13] MEDS: Potassium Chloride 20 MEQ in IV D5/0.45 NACL 1,000 ML IV PRN (14:39)
[2019-03-13 16:00] VITALS: BP 138/92
--- NOTE | 2019-03-13 17:30 | NUR ---
MS RN NOTES SEEN AND EVALUATED BY GI/SURGERY MD. PLAN FOR EGD PAIGE. CONSENTS PREPARED. PT PREFERS NOT TO SIGN AT THIS TIME. WILL TRY AGAIN IN A BIT.
--- NOTE | 2019-03-13 18:53 | NUR ---
MS RN CLOSING NOTES PT REMAINS IN BED, AWAKE, A/O X4. PT TOLERATING RA, WITH NO ACUTE RESPIRATORY DISTRESS NOTED. PT DENIES ANY PAIN OR ANY DISCOMFORT AT THIS TIME. IVF D5 1/2 NS WITH KCL AT 100ML/HR TO LAC G22, INTACT AND FLUID INFUSING WELL. KEPT PT COMFORTABLE IN BED. ALL NEEDS AND CARE ATTENDED. CALL LIGHT KEPT WITHIN REACH. PT'S BED KEPT IN LOWEST, LOCKED POSITION WITH SRX3. WILL ENDORSE TO INCOMING CHANNELING MACHINE OPERATOR NURSE FOR EVONNE.
--- NOTE | 2019-03-13 19:40 | NUR ---
MS RN OPENING NOTES PATIENT RECEIVED RESTING IN BED A/O x4. STABLE ON RA WITH BREATHING EVEN AND UNLABORED, NO SOB NOTED. NO SIGNS OF ACUTE DISTRESS. NO COMPLAINTS OF PAIN OR DISCOMFORT. IV LOCATED ON L AC #20 RUNNING D5 1/2 NS KCI. SAFETY PRECAUTIONS IN PLACE WITH BED IN LOWEST POSITION, CALL LIGHT WITHIN REACH, BREAKS ON, AND SIDE RAILS UP. WILL CONTINUE TO MONITOR.
[2019-03-13 20:00] VITALS: BP 140/95
[2019-03-13] MEDS: QUETIAPINE FUMARATE 100 MG TABLET PO SCH (21:08)
[2019-03-13] MEDS ORDERED: IV NS 0.9% 250 ML IV ONE (22:00)
[2019-03-13 22:06] LABS: ABG BASE EXCESS -0.5 mmol/L; ABG OXYGEN SATURATION 96.1 % (92.0-98.5); ABG PCO2 32.4 mmHg (35.0-45.0); ABG PH 7.464 (7.350-7.450); ABG PO2 94.5 mmHg (75.0-100.0); AaDO2 586.1 mmHg; COHb 0.3 % (0.5-1.5); MetHb 0.3 % (0.0-1.5); O2Hb 95.5 % (94.0-97.0); SITE, ABG Left Radial; VENT MODE, BG 15L NRB
[2019-03-13 22:37] VITALS: BP 83/41
--- NOTE | 2019-03-13 22:46 | NUR ---
RR NOTES PATIENT APPEARED TO BE MORE LETHARGIC THAN USUAL- VITALS CHECKED AND O2 SAT WAS AT 79% ON RA, BREATHING HEAVY AND HR 135. CHARGE NOTIFIED. [facility] RESPONSE CALLED AT 0 AND THEY ARRIVED AT 2150. JIMMIE OJEDA BROUGHT CRASH CART TO PATIENT ROOM- PLACED HER ON TELE MONITOR. CHARGE TREVOR CALLED RAPID RESPONSE. ICU NURSE RASHMI ARRIVED. NOTIFIED. RT'S ARRIVED WELL. PATIENT PLACED ON REBREATHER MASK 15L. PATIENT BP 83/41 HR 146 GLUC 176. ABG, CXR, AND NS 250 BOLUS STAT ORDERED. PATIENT A/O X 4 O2 SAT AT 97% REMAINING TACHYCARDIC AT 124 SR. WILL CONTINUE TO MONITOR. ABG RESULTS ARRIVED- AWAITING CXR RESULTS.
[2019-03-13] MEDS ORDERED: PIPERACILLIN /TAZOBACTAM 3.375 G VIAL IV ONE (23:55)
[2019-03-14] MEDS ORDERED: ZOSYN IVPB 3.375 G in IV D5W 50ml IV ONE ×2
[2019-03-14] MEDS: Potassium Chloride 20 MEQ in IV D5/0.45 NACL 1,000 ML IV PRN ×2 (01:11→17:34)
[2019-03-14] MEDS: METOCLOPRAMIDE HCL 10 MG/2 ML VIAL IV SCH ×4 (03:17→21:00)
--- NOTE | 2019-03-14 05:55 | NUR ---
MS OJEDA NOTES PATIENT PICKED UP BY OR STAFF VIA DAMIEN WITH MEDICAL CHART. Addendum: 03/14/19 at 0741 by VASILE THAO RN Patient left floor via damien A/O X 4. ON 2 L O2 VIA NC O2 SAT 98% BP 130/91 PULSE 108. CONSENT SIGNED AND PLACED IN CHART. GAVE REPORT TO OR NURSE DOWNSTAIRS ABOUT RR THAT OCCURRED IN THE NIGHT.
[2019-03-14] MEDS ORDERED: ALBUTEROL HALF STRENGTH 1.25 MG/3 ML VIAL.NEB ONE (07:28)
[2019-03-14] MEDS: PANTOPRAZOLE 40 MG TABLET.DR PO SCH (07:30)
--- NOTE | 2019-03-14 07:30 | NUR ---
MS RN OPENING NOTES RECEIVED PT IN BED, AWAKE, A/O X4. JUST CAME BACK FROM EGD PROCEDURE. PT ON 4L SUPPLEMENTARY OXYGEN, WITH NO ACUTE RESPIRATORY DISTRESS NOTED. PT DENIES ANY PAIN OR ANY DISCOMFORT AT THIS TIME. ALSO, PT DENIES ANY CONCERNS OR QUESTIONS WELL. PIV TO LAC G22, FLUSHED WITH NS, INTACT AND OPERATIONAL. KEPT PT COMFORTABLE IN BED. CALL LIGHT KEPT WITHIN REACH. PT'S BED KEPT IN LOWEST, LOCKED POSITION WITH SRX3. WILL CONTINUE PLAN OF CARE.
[2019-03-14 08:00] VITALS: BP 128/80
[2019-03-14] MEDS: LIPASE/PROTEASE/AMYLASE 1 EACH CAPSULE.DR PO SCH ×3 (08:00→18:00)
[2019-03-14] MEDS: ENSURE ENLIVE CHOC 237 ML CAN PO SCH ×3 (08:00→17:35)
[2019-03-14] MEDS: PIPERACILLIN /TAZOBACTAM 3.375 G in IV D5W 50 ML IV SCH ×4 (08:52→23:15)
[2019-03-14] MEDS: CEPHALEXIN MONOHYDRATE 500 MG CAPSULE PO SCH (09:00)
[2019-03-14] MEDS: POTASSIUM CHLORIDE 20 MEQ TAB.PRT.SR PO SCH (09:27)
[2019-03-14 11:14] LABS: BASOPHILS % (AUTO) 0.1 % (0.0-2.0); HEMATOCRIT 36 % (33-45); HEMOGLOBIN 11.9 g/dL (11.5-14.8); LYMPHOCYTES # (AUTO) 0.4 /CMM (0.8-4.8); LYMPHOCYTES % (AUTO) 5.1 % (20.0-44.0); MEAN CORPUSCULAR HGB CONC 33 g/dl (31.0-36.0); MEAN CORPUSCULAR VOLUME 91 fL (82-100); MONOCYTES # (AUTO) 0.2 /CMM (0.1-1.30); NEUTROPHILS # (AUTO) 7.6 /CMM (1.8-8.9); NEUTROPHILS % (AUTO) 91.8 % (43.0-81.0); PLATELET COUNT (AUTO) 328 /CMM (150-450); RED BLOOD CELL COUNT(AUTO) 3.97 MIL/uL (4.0-5.2); WHITE BLOOD COUNT (AUTO) 8.3 K/uL (4.3-11.0)
--- NOTE | 2019-03-14 11:15 | NUR ---
MS RN NOTES PT WENT DOWN FOR XR ESOPHAGRAM.
[2019-03-14 11:26] LABS: CALCIUM, SERUM 8.6 mg/dL (8.5-10.1); CREATININE 0.5 mg/dL (0.6-1.3); MAGNESIUM 1.8 mg/dL (1.8-2.4); PHOSPHORUS 2.4 mg/dL (2.5-4.9); POTASSIUM 3.5 mmol/L (3.5-5.1)
[2019-03-14] MEDS ORDERED: DIATR MEGLU/DIATRIZOATE SODIUM 120 ML BOTTLE (GASTROGRAPHIN) ONE (11:39)
--- NOTE | 2019-03-14 12:36 | NUR ---
MS RN NOTES PT CAME BACK FRO XR ESOPHAGRAM. PT TOLERATING 3L OXYGEN, WITH NO ACUTE RESPIRATORY DISTRESS. PT DENIES PAIN AND DISCOMFORT AT THE MOMENT WELL. SPEECH THERAPIST MEERA PRESENT AT BEDSIDE TO DO SWALLOW EVAL. WILL CONTINUE TO MONITOR.
[2019-03-14 12:40] LABS: BAND % (MANUAL) 10 % (0.0-5.0); LYMPHOCYTES % (MANUAL) 5 % (16-48); MONOCYTES % (MANUAL) 2 % (0-11.0); NEUTROPHILS % (MANUAL) 83 (42-76)
--- NOTE | 2019-03-14 13:00 | NUR ---
MS RN NOTES PT FINISHED WITH SPEECH THERAPY. PT ALSO PREFERS NOT TO TAKE PILLS AT THIS TIME. ST STATED TO KEEP SAME DIET FOR NOW. WILL CONITNUE TO MONITOR PT.
[2019-03-14] MEDS ORDERED: NEUTRA PHOS 1 POWD.PACKET PO ONE (14:00)
--- NOTE | 2019-03-14 14:15 | NUR ---
MS RN NOTES SPOKE AGAIN WITH EMILIA, PER PT STILL NOT ABLE TO KEEP FOOD OR WATER. WILL RELY TO HOSPITALIST/DT.
--- NOTE | 2019-03-14 15:00 | NUR ---
MS RN NOTES DT ORDERED NPO AT THIS TIME. AWARE PT'S XR ESOPHAGRAM NOT SIGNED YET. PT MADE AWARE WELL.
--- NOTE | 2019-03-14 15:44 | NUR ---
MS RN NOTES SPEECH THERAPIST/TIAN CAME AND SAW PT AGAIN. PLACED PT ON FULL LIQUIDS, NOTIFIED DT WELL. PT AWARE WITH THE PLAN OF CARE.
[2019-03-14 16:00] VITALS: BP 114/72
--- NOTE | 2019-03-14 17:30 | NUR ---
MS RN NOTES TOOK PICTURE OF COCCYX, SMALL ABRASION NOTED. ZGUARD APPLIED AND MEPILEX. PT AWARE AND INSTRUCTED TO TURN FROM TIME TO TIME. WILL ENDORSE TO INCOMING PRODUCTION LINE NURSE FOR EVONNE.
--- NOTE | 2019-03-14 18:59 | NUR ---
MS RN CLOSING NOTES PT REMAINS IN BED, AWAKE, A/O X4. ON SUPPLEMENTARY OXYGEN AT 3LPM, WITH NO ACUTE RESPIRATORY DISTRESS NOTED. PT DENIES ANY PAIN OR ANY DISCOMFORT AT THIS TIME. IVF D5 1/2 NS WITH KCL AT 100ML/HR TO LAC G22, INTACT AND FLUID INFUSING WELL. KEPT PT COMFORTABLE IN BED. ALL NEEDS AND CARE ATTENDED. CALL LIGHT KEPT WITHIN REACH. PT'S BED KEPT IN LOWEST, LOCKED POSITION WITH SRX3. WILL ENDORSE TO INCOMING NUMEROLOGIST NURSE FOR EVONNE.
[2019-03-14 20:00] VITALS: BP 131/80
[2019-03-14 20:04] VITALS: BP 131/80
--- NOTE | 2019-03-14 20:05 | NUR ---
MS RN CLOSING NOTES PT REMAINS IN BED, AWAKE, A/O X4. ON OXYGEN VIA NC AT 3LPM, WITH NO ACUTE RESPIRATORY DISTRESS NOTED BREATHING EVEN AND UNLABORED. PT DENIES ANY PAIN OR ANY DISCOMFORT AT THIS TIME. IVF D5 1/2 NS WITH KCL AT 100ML/HR TO LAC G22, INTACT AND FLUID INFUSING WELL. KEPT PT COMFORTABLE IN BED. ALL NEEDS AND CARE ATTENDED. CALL LIGHT KEPT WITHIN REACH. PT'S BED KEPT IN LOWEST, LOCKED POSITION WITH SRX3. WILL ENDORSE TO INCOMING COMMUNITY LIVING COACH NURSE FOR EVONNE. Addendum: 03/14/19 at 2125 by VASILE THAO RN MS RN OPENING NOTES PT REMAINS IN BED, AWAKE, A/O X4. ON OXYGEN VIA NC AT 3LPM, WITH NO ACUTE RESPIRATORY DISTRESS NOTED BREATHING EVEN AND UNLABORED. PT DENIES ANY PAIN OR ANY DISCOMFORT AT THIS TIME. IVF D5 1/2 NS WITH KCL AT 100ML/HR TO LAC G22, INTACT AND FLUID INFUSING WELL. KEPT PT COMFORTABLE IN BED. ALL NEEDS AND CARE ATTENDED. CALL LIGHT KEPT WITHIN REACH. PT'S BED KEPT IN LOWEST, LOCKED POSITION WITH SRX3. WILL CONTINUE TO MONITOR.
[2019-03-14] MEDS: QUETIAPINE FUMARATE 100 MG TABLET PO SCH (21:28)
--- NOTE | 2019-03-14 21:28 | NUR ---
MS RN NOTES PATIENT REFUSES TO TAKE ANY PO MEDICATIONS AT THE MOMENT. WILL CONTINUE TO MONITOR.
[2019-03-15] MEDS: METOCLOPRAMIDE HCL 10 MG/2 ML VIAL IV SCH ×4 (03:18→20:57)
[2019-03-15] MEDS: Potassium Chloride 20 MEQ in IV D5/0.45 NACL 1,000 ML IV PRN ×2 (04:16→18:42)
[2019-03-15] MEDS: PIPERACILLIN /TAZOBACTAM 3.375 G in IV D5W 50 ML IV SCH ×3 (05:21→18:13)
--- NOTE | 2019-03-15 06:12 | NUR ---
MS RN CLOSING NOTES PATIENT RESTING IN BED A/O X4. ON 3L OF O2 VIA NC BREATHING EVEN AND UNLABORED. NO SIGNS OF ACUTE DISTRESS. NO COMPLAINTS OF PAIN OR DISCOMFORT. IV LOCATED ON L FA #22 RUNNING D5 1/2 NS KCI 20 EQ. SAFETY PRECAUTIONS IN PLACE WITH BED IN LOWEST POSITION, CALL LIGHT WITHIN REACH, BREAKS ON, SIDE RAILS UP. PATIENT WAS KEPT CLEAN AND DRY THROUGHOUT THE NIGHT, ALL NEEDS ATTENDED TO. PATIENT WAS KEPT CLEAN AND DRY THROUGHOUT THE NIGHT, ALL NEEDS ATTENDED TO. WILL ENDORSE TO ONCOMING SHIFT ABOUT EVONNE.
[2019-03-15 07:06] LABS: BASOPHILS % (AUTO) 0.1 % (0.0-2.0); HEMATOCRIT 34 % (33-45); HEMOGLOBIN 11.3 g/dL (11.5-14.8); LYMPHOCYTES # (AUTO) 0.2 /CMM (0.8-4.8); LYMPHOCYTES % (AUTO) 3.2 % (20.0-44.0); MEAN CORPUSCULAR HGB CONC 33 g/dl (31.0-36.0); MEAN CORPUSCULAR VOLUME 90 fL (82-100); MONOCYTES # (AUTO) 0.2 /CMM (0.1-1.30); MONOCYTES % (AUTO) 2.4 % (2.0-12.0); NEUTROPHILS # (AUTO) 7.3 /CMM (1.8-8.9); NEUTROPHILS % (AUTO) 94.3 % (43.0-81.0); PLATELET COUNT (AUTO) 322 /CMM (150-450); WHITE BLOOD COUNT (AUTO) 7.8 K/uL (4.3-11.0)
[2019-03-15] MEDS: PANTOPRAZOLE 40 MG TABLET.DR PO SCH (07:30)
--- NOTE | 2019-03-15 07:30 | NUR ---
MS RN OPENING NOTE PATIENT RESTING COMFORTABLY IN BED. PATIENT IN NO ACUTE DISTRESS. NO SOB NOTED. PATIENT BREATHING IS EVEN AND UNLABORED. BED ALARM IS ON. SAFETY PRECAUTIONS IN PLACE. PATIENT BED IS LOCKED AND IN LOWEST POSITION. CALL LIGHT WITHIN REACH. WILL CONTINUE TO MONITOR.
[2019-03-15 07:36] LABS: CALCIUM, SERUM 8.6 mg/dL (8.5-10.1); CREATININE 0.6 mg/dL (0.6-1.3); PHOSPHORUS 2.4 mg/dL (2.5-4.9); POTASSIUM 3.1 mmol/L (3.5-5.1)
[2019-03-15 08:00] VITALS: BP 133/86
[2019-03-15] MEDS: LIPASE/PROTEASE/AMYLASE 1 EACH CAPSULE.DR PO SCH ×3 (08:00→18:00)
[2019-03-15] MEDS: ENSURE ENLIVE CHOC 237 ML CAN PO SCH ×3 (08:00→17:00)
--- NOTE | 2019-03-15 09:49 | NUR ---
MS/RN note Ok per MD to change Potassium 20meq PO to IV
[2019-03-15] MEDS: POTASSIUM CL. PREMIX PERIPHER. 50 ML IV SCH ×2 (11:00→11:13)
[2019-03-15] MEDS ORDERED: K PHOS NEUTRAL 250 MG TABLET PO ONE (12:00)
[2019-03-15] MEDS ORDERED: Sodium Phosphate 15 MMOL in IV D5W 250 ML IV ONE (13:00)
[2019-03-15] MEDS ORDERED: POTASSIUM CL. PREMIX PERIPHER. 50 ML IV SCH (14:00)
[2019-03-15 16:00] VITALS: BP 130/80
[2019-03-15] MEDS ORDERED: MVI ADULT IV ONE (18:00)
[2019-03-15] MEDS ORDERED: POTASSIUM CHLORIDE IV ONE (18:00)
[2019-03-15] MEDS ORDERED: MVI-12 10ML IV ONE (18:00)
[2019-03-15] MEDS ORDERED: NACL IV ONE (18:00)
[2019-03-15] MEDS ORDERED: D5 IV ONE (18:00)
--- NOTE | 2019-03-15 19:21 | NUR ---
MS RN CLOSING NOTE PATIENT RESTING COMFORTABLY IN BED. PATIENT IN NO ACUTE DISTRESS. NO SOB NOTED. PATIENT BREATHING IS EVEN AND UNLABORED. NEEDS AND CONCERNS ADDRESSED. PATIENT KEPT CLEAN AND DRY THROUGHOUT SHIFT. BED ALARM IS ON. SAFETY PRECAUTIONS IN PLACE. PATIENT BED IS LOCKED AND IN LOWEST POSITION. CALL LIGHT WITHIN REACH. WILL ENDORSE CARE TO PM SHIFT FOR EVONNE.
--- NOTE | 2019-03-15 19:30 | NUR ---
MS RN OPENING NOTES PATIENT AWAKE IN BED, WATCHING IPAD. A/O X4. ABLE TO VERBALIZE NEEDS. A/O X4. ON 3L NC. NO S/S OF ACUTE RESPIRATORY DISTRESS AND NO COMPLAINTS OF PAIN AT THIS TIME. IV PRESENT ON LEFT FOREARM, SIZE 22, INTACT & PATENT, D5 1/2 NS & KCL 20 MEQ RUNNING AT 100 CC/HR. BED LOCKED, ALARM ON, SEMI-LEARY'S POSITION, CALL LIGHT WITHIN REACH. WILL CONTINUE TO MONITOR.
[2019-03-15 20:00] VITALS: BP 123/80
[2019-03-15 20:55] VITALS: BP 123/80
--- NOTE | 2019-03-15 20:57 | NUR ---
MS RN NOTES PATIENT C/O ANXIETY AND DIFFICULTY SLEEPING. PER PATIENT'S REQUEST, ADMINISTERED 0.5MG/0.25ML ATIVAN. VITAL SIGNS- BP: 146/78 HR: 88 RR: 18 SPO2: 93 ON 3L NC. BED LOCKED, ALARM ON, SIDE RAILS X2, CALL LIGHT WITHIN REACH. WILL CONTINUE TO MONITOR.
[2019-03-15] MEDS: QUETIAPINE FUMARATE 100 MG TABLET PO SCH (21:07)
[2019-03-15 23:00] VITALS: BP 132/75
--- NOTE | 2019-03-15 23:00 | NUR ---
MS RN NOTES PATIENT SLEEPING IN BED, EASY TO AWAKEN. VITAL SIGNS - BP: 132/75 HR: 128 RR: 20 SPO2: 92 ON 3L NC. WILL CONTINUE TO MONITOR.
[2019-03-16] MEDS: PIPERACILLIN /TAZOBACTAM 3.375 G in IV D5W 50 ML IV SCH ×4 (00:09→17:00)
[2019-03-16] MEDS: METOCLOPRAMIDE HCL 10 MG/2 ML VIAL IV SCH ×4 (03:48→20:51)
[2019-03-16 06:39] LABS: BASOPHILS % (AUTO) 0.1 % (0.0-2.0); HEMATOCRIT 34 % (33-45); HEMOGLOBIN 11.1 g/dL (11.5-14.8); LYMPHOCYTES # (AUTO) 0.4 /CMM (0.8-4.8); LYMPHOCYTES % (AUTO) 2.9 % (20.0-44.0); MEAN CORPUSCULAR HGB CONC 33 g/dl (31.0-36.0); MEAN CORPUSCULAR VOLUME 91 fL (82-100); MONOCYTES # (AUTO) 0.2 /CMM (0.1-1.30); MONOCYTES % (AUTO) 1.8 % (2.0-12.0); NEUTROPHILS # (AUTO) 11.6 /CMM (1.8-8.9); NEUTROPHILS % (AUTO) 95.2 % (43.0-81.0); PLATELET COUNT (AUTO) 339 /CMM (150-450); RED BLOOD CELL COUNT(AUTO) 3.72 MIL/uL (4.0-5.2); WHITE BLOOD COUNT (AUTO) 12.2 K/uL (4.3-11.0)
[2019-03-16 06:43] LABS: CALCIUM, SERUM 8.2 mg/dL (8.5-10.1); CREATININE 0.6 mg/dL (0.6-1.3); PHOSPHORUS 2.8 mg/dL (2.5-4.9)
--- NOTE | 2019-03-16 07:28 | NUR ---
MS RN CLOSING NOTES PATIENT AWAKE IN BED. A/O X4. ON 3L NC. NO S/S OF SOB AND NO COMPLAINTS OF PAIN AT THIS TIME. IV PRESENT ON LEFT HAND, SIZE 22, INTACT & PATENT, D51/2 NS & KCL 20MEQ RUNNING AT 100 CC/HR. BED LOCKED, ALARM ON, SIDE RAILS X2, CALL LIGHT WITHIN REACH. WILL ENDORSE TO DAY SHIFT NURSE TO FOLLOW PLAN OF CARE.
[2019-03-16 08:00] VITALS: BP 134/81
[2019-03-16] MEDS: LIPASE/PROTEASE/AMYLASE 1 EACH CAPSULE.DR PO SCH ×3 (08:07→17:00)
[2019-03-16] MEDS: PANTOPRAZOLE 40 MG TABLET.DR PO SCH (08:07)
[2019-03-16] MEDS: ENSURE ENLIVE CHOC 237 ML CAN PO SCH ×3 (08:16→16:51)
[2019-03-16] MEDS: POTASSIUM CL. PREMIX PERIPHER. 50 ML IV SCH ×5 (08:19→12:12)
--- NOTE | 2019-03-16 08:30 | NUR ---
MS RN OPENING NOTES RECEIVED PT AWAKE IN BED, WATCHING IPAD. A/O X4. ABLE TO VERBALIZE NEEDS. A/O X4. ON 3L NC. NO S/S OF ACUTE RESPIRATORY DISTRESS. PT HAS NO COMPLAINTS OF PAIN OR DISCOMFORT AT THIS TIME. IV SITE NOTED ON LEFT HAND, G 22, INTACT & PATENT, FLUSHING WELL. POTASSIUM REPLACEMENT RUNNING AT THIS TIME. BED LOCKED, ALARM ON, SEMI-LEARY'S POSITION, CALL LIGHT WITHIN REACH. WILL CONTINUE TO MONITOR.
[2019-03-16] MEDS: Potassium Chloride 20 MEQ in IV D5/0.45 NACL 1,000 ML IV PRN (09:13)
[2019-03-16 16:00] VITALS: BP 131/79
--- NOTE | 2019-03-16 17:17 | NUR ---
MS RN CLOSING NOTES PT AWAKE IN BED, WATCHING IPAD. A/O X4. ABLE TO VERBALIZE NEEDS. A/O X4. ON 3L NC. NO S/S OF ACUTE RESPIRATORY DISTRESS. PT HAS NO COMPLAINTS OF PAIN OR DISCOMFORT AT THIS TIME. IV SITE NOTED ON LEFT HAND, G 22, INTACT & PATENT, FLUSHING WELL. ALL DUE MEDS GIVEN. NO ASE NOTED. PT HAS VERY POOR PO INTAKE. PT ALSO REFUSING TO TAKE PO MEDS. EXPLAINED RISKS AND BENEFITS. BED LOCKED, ALARM ON, SEMI-LEARY'S POSITION, CALL LIGHT WITHIN REACH. EXPLAINED TO PT TO CALL AND NOTIFY STAFF IF WANTING TO GET UP AND GO TO THE [facility]. WILL CONTINUE TO MONITOR.
--- NOTE | 2019-03-16 19:25 | NUR ---
MS RN NOTES RECEIVED ON BED A/O X4,BREATHING NON LABORED,O3 3L/NC IN USED,PRESENT IVF WITH KCL INFUSING AT 100ML/HR RATE VIA IV PUMP,SITE PATENT ON LEFT HAND.NOTED CRACKLES ON BOTH LOWER LUNG FIELD,WET COUGH NOTED.CALL LIGHT IN REACH,NEEDS ANTICIPATED.
[2019-03-16 20:00] VITALS: BP 147/80
[2019-03-16] MEDS: QUETIAPINE FUMARATE 100 MG TABLET PO SCH (22:00)
--- NOTE | 2019-03-16 22:00 | NUR ---
MS RN NOTES PATIENT REFUSED HER SEROQUEL 200MG PO THIS TIME.
[2019-03-17] MEDS: PIPERACILLIN /TAZOBACTAM 3.375 G in IV D5W 50 ML IV SCH ×4 (00:26→17:14)
[2019-03-17] MEDS: Potassium Chloride 20 MEQ in IV D5/0.45 NACL 1,000 ML IV PRN ×2 (01:13→12:25)
[2019-03-17] MEDS: METOCLOPRAMIDE HCL 10 MG/2 ML VIAL IV SCH ×4 (02:54→21:58)
--- NOTE | 2019-03-17 06:28 | NUR ---
MS RN NOTES SLEEPING,AROUSABLE TO VERBAL STIMULI.NO EPISODE OF SOB NOTED.DUE IV ABX ADMINISTERED SCHEDULED.CALL LIGHT IN REACH,NEEDS ATTENDED.WILL ENDORSE TO DAY NURSE FOR EVONNE.
--- NOTE | 2019-03-17 07:15 | NUR ---
MS RN OPENING NOTES RECEIVED PT IN BED, AWAKE, A/O X4. PT ON SUPPLEMENTARY OXYGEN VIA NC, WITH NO ACUTE RESPIRATORY DISTRESS NOTED. PT DENIES ANY PAIN OR ANY DISCOMFORT AT THIS TIME. ALSO, PT DENIES ANY CONCERNS OR QUESTIONS WELL. IVF D5 1/2 NS WITH 20 MEQ K+ TO LEFT HAND G22, INTACT AND INFUSING WELL. KEPT PT COMFORTABLE IN BED. CALL LIGHT KEPT WITHIN REACH. PT'S BED KEPT IN LOWEST, LOCKED POSITION WITH SRX3. WILL CONTINUE PLAN OF CARE.
[2019-03-17] MEDS: PANTOPRAZOLE 40 MG TABLET.DR PO SCH (07:30)
[2019-03-17 08:00] VITALS: BP 99/53
[2019-03-17] MEDS: LIPASE/PROTEASE/AMYLASE 1 EACH CAPSULE.DR PO SCH ×3 (08:00→18:00)
[2019-03-17] MEDS: ENSURE ENLIVE CHOC 237 ML CAN PO SCH ×3 (08:25→17:10)
--- NOTE | 2019-03-17 09:30 | NUR ---
MS RN NOTES PT REFUSED MORNING MEDICINES BY MOUTH. ONLY LIKES MEDICINE VIA IV. RN EXPLAINED BENEFITS. WILL CONTINUE TO MONITOR.
--- NOTE | 2019-03-17 11:00 | NUR ---
MS RN NOTES SPOKE TTO NAT/EKATERINA. PT TO DISCHARGE TO [facility] JUST AWAITING FOR AUTHORIZATION. AND PT WILL BE UNDER [facility]. PT AWARE. AWAITING FOR CM'S CALL BACK.
[2019-03-17 16:00] VITALS: BP 147/77
--- NOTE | 2019-03-17 17:40 | NUR ---
MS RN NOTES VERIFIED AND SPOKE TO NAT/EKATERINA. PT PLAN TO DISCHARGE TO HOME WITH [facility]. BUT DISCHARGE WON'T HAPPEN TONIGHT UNTIL EQUIPMENTS ARE DELIVERED AT HOME. TO FOLLOW UP AGAIN TOMORROW MORNING WITH CM. PT AWARE WITH THE PLAN.
--- NOTE | 2019-03-17 18:34 | NUR ---
MS RN CLOSING NOTES PT REMAINS IN BED, AWAKE, A/O X4. PT ON SUPPLEMENTARY OXYGEN VIA NC, WITH NO ACUTE RESPIRATORY DISTRESS NOTED. PT DENIES ANY PAIN OR ANY DISCOMFORT AT THIS TIME. ALSO, PT DENIES ANY CONCERNS OR QUESTIONS WELL. IVF D5 1/2 NS WITH 20 MEQ K+ TO LEFT HAND G22, INTACT AND INFUSING WELL. KEPT PT COMFORTABLE IN BED. ALL NEEDS AND CARE ATTENDED. CALL LIGHT KEPT WITHIN REACH. PT'S BED KEPT IN LOWEST, LOCKED POSITION WITH SRX3. WILL ENDORSE TO INCOMING NIGHT NURSE FOR EVONNE.
[2019-03-17 20:00] VITALS: BP 137/86
--- NOTE | 2019-03-17 20:14 | NUR ---
MS RN RECEIVED PATIENT IN BED A/O X 3, STABLE AND NOT IN DISTRESS. WILL CONTINUE TO MONITOR
[2019-03-17] MEDS: QUETIAPINE FUMARATE 100 MG TABLET PO SCH ×2 (21:58→22:00)
--- NOTE | 2019-03-17 22:55 | NUR ---
TRANSFER OF CARE PT TRANSFERRED TO ROOM 205-1 REPORT GIVEN TO RUSTY ROJAS. PT STABLE, ALL BELONGINGS TAKEN WITH THE PT. VS STABLE. PT NEEDS ATTENDED, KEPT CLEAN AY ALL TIMES.
--- NOTE | 2019-03-17 23:13 | NUR ---
RN NOTES RECEIVED BEDSIDE REPORT FROM RUSTY MORRIS. PATIENT WAS TRANSFERRED FROM ROOM 309-2 TO 205-1. ALL NEEDS ANTICIPATED,NO SIGNS OF ACUTE DISTRESS, SAFETY MEASURES IN PLACE, ASPIRATION PRECAUTION EMPHASIZED, SUCTION SET UP PROVIDED PER PATIENT REQUEST, DENIES ANY PAIN AT THIS TIME, REPOSITIONED FOR COMFORT, IV ACCESS INTACT AND PATENT, NO SIGNS AND SYMPTOMS OF INFECTION OR INFILTRATION, BED IN LOW LOCKED POSITION, CALL LIGHT WITHIN EASY REACH, WILL CONTINUE TO MONITOR ACCORDINGLY.
[2019-03-18] MEDS: PIPERACILLIN /TAZOBACTAM 3.375 G in IV D5W 50 ML IV SCH ×3 (00:05→12:27)
[2019-03-18] MEDS: METOCLOPRAMIDE HCL 10 MG/2 ML VIAL IV SCH ×2 (03:09→08:09)
[2019-03-18] MEDS: Potassium Chloride 20 MEQ in IV D5/0.45 NACL 1,000 ML IV PRN ×2 (03:11→13:28)
--- NOTE | 2019-03-18 06:18 | NUR ---
RN NOTES ALL NEEDS ATTENDED AND MET, ABLE TO REST AND SLEPT AT INTERVALS, SAFETY MEASURES IN PLACE, NO SIGNS OF ACUTE DISTRESS NOTED, KEEP CLEAN DRY AND COMFORTABLE, REPOSITIONED FOR COMFORT, WILL ENDORSE TO AM NURSE FOR CONTINUITY OF CARE.
--- NOTE | 2019-03-18 07:30 | NUR ---
MS/RN Patient received Patient received from date night sitter. A/O X3-4, vital signs stable, states that pain level is currently 4/10 and does not want any pain medications, only requesting reglan. Will administer as ordered. Call light within reach, side rails X3 in upright position, bed in low setting. Will continue to monitor and ensure safety.
[2019-03-18 08:00] VITALS: BP 151/93
[2019-03-18] MEDS: PANTOPRAZOLE 40 MG TABLET.DR PO SCH (08:09)
[2019-03-18] MEDS: ENSURE ENLIVE CHOC 237 ML CAN PO SCH ×2 (08:09→12:00)
[2019-03-18] MEDS: LIPASE/PROTEASE/AMYLASE 1 EACH CAPSULE.DR PO SCH ×2 (08:09→12:27)
--- NOTE | 2019-03-18 09:30 | NUR ---
MS/RN S/B Loki Seen by VP OF PRODUCT - plan discharge to home with hospice services per husbands request.
--- NOTE | 2019-03-18 12:00 | NUR ---
MS/RN Medications Refused lunch time oral medications, stating too much nausea at this time. Educated as to the importance of taking medications as ordered but still refusing.
--- NOTE | 2019-03-18 13:48 | NUR ---
MS/RN IVAB IVAB infusing as ordered, no reaction noted.
[2019-03-18 16:00] VITALS: BP 125/62
--- NOTE | 2019-03-18 16:00 | NUR ---
MS/transfer table operator helper plans Informed by home health care case manager Melvina, that has everything set up at home, all supplies have been delivered. Medications were being picked up from pharmacy and would be available by the time patient got home.
--- NOTE | 2019-03-18 17:45 | NUR ---
MS/supervising floorperson Patient discharged in stable condition. Heplock and name bands removed, all personal belongings accounted for on belongings list. Exit care prepared, patient given copy and also copy of medical record. Two nurses signed paperwork as patient stating that she feels to weak to signs and gave verbal consent that everything was correct. Patient cleaned and placed into clean gown, meplix applied to sacral area to try to make journey home more comfortable. Report given to paramedics. Left unit in stable condition.
== END 2019-03-18 17:45 | disposition hospice, home (50) | DRG 391 ==
LOC: TELE 21:21 → MED 03-10 10:38 → MEDSG2 03-17 22:33
PROVIDERS: ADMIT Nurse Practitioner Acute Care; ATTEND Nurse Practitioner Acute Care
PROC: 0D738ZZ Dilation of Lower Esophagus, Via Natural or Artificial Opening Endoscopic (ICD-10-PCS; principal; 2019-03-14)
DX: K22.2 Esophageal obstruction (principal); E43 Unspecified severe protein-calorie malnutrition; K56.50 Intestinal adhesions [bands], unspecified as to partial versus complete obstruction; R64 Cachexia; F33.3 Major depressive disorder, recurrent, severe with psychotic symptoms; Z68.1 Body mass index [BMI] 19.9 or less, adult; I10 Essential (primary) hypertension; E87.6 Hypokalemia; K22.0 Achalasia of cardia; Z51.5 Encounter for palliative care; Z85.07 Personal history of malignant neoplasm of pancreas; Z90.411 Acquired partial absence of pancreas; Z92.21 Personal history of antineoplastic chemotherapy; Z92.3 Personal history of irradiation; F29 Unspecified psychosis not due to a substance or known physiological condition; K29.70 Gastritis, unspecified, without bleeding; K20.9 Esophagitis, unspecified; Z87.440 Personal history of urinary (tract) infections
CPT/HCPCS: 36415; 36600; 71045-TC; 74178; 74230-TC; 74250-TC; 80048-TC; 80053-TC; 80061-TC; 82378; 82803-TC; 82962-TC; 83540-TC; 83690-TC; 83735-TC; 84100-TC; 84443-TC; 85025-TC; 85730-TC; 86301; 92526; 92611-TC; 94799-TC; A9563; C1726; G0378; J2060; J2270; J2405; J2543; J2765; J3475; J3480; J3490; J7042; J7050; J7060; Q9963; Q9967